=== PATIENT | male | born 1980 | race Hispanic/Latino ===

== ENCOUNTER 2024-03-26 11:30 | Inpatient (IN) | payer SELFPAY ==
[~2024-03-26] VITALS: Ht 160 cm; Wt 99.8 kg
[2024-03-26] MEDS: LACTATED RINGERS 1000ML 1,000 ML IV ONE (11:54)
[2024-03-26 12:05] LABS: BASOPHILS # (AUTO) 0.04 K/uL (0.00-0.20); BASOPHILS % (AUTO) 0.5 % (0.0-5.0); EOSINOPHILS # (AUTO) 0.09 K/uL (0.00-0.70); EOSINOPHILS % (AUTO) 1.2 % (0.0-8.0); IMMATURE GRANULOCYTE ABSOLUTE 0.02 K/uL (0-1); LYMPHOCYTES # (AUTO) 1.6 K/uL (1.0-4.8); LYMPHOCYTES % (AUTO) 20.8 % (21.0-51.0); MEAN CORPUSCULAR HEMOGLOBIN 29.5 pg (27.0-33.0); MEAN CORPUSCULAR HGB CONC 34.5 g/dL (32.0-36.0); MEAN CORPUSCULAR VOLUME 85.6 fL (79-99); MONOCYTES # (AUTO) 0.5 K/uL (0.1-1.0); MONOCYTES % (AUTO) 6.6 % (3.0-13.0); NEUTROPHILS # (AUTO) 5.3 K/uL (1.8-7.7); NEUTROPHILS % (AUTO) 70.6 % (40.0-77.0); PLATELET COUNT (AUTO) 176 K/uL (130-400); RED BLOOD CELL COUNT(AUTO) 5.49 MIL/uL (4.50-6.20); RED CELL DISTRIBUTION WIDTH 12.8 % (11.0-15.5); WHITE BLOOD COUNT (AUTO) 7.4 K/uL (4.8-10.8)
[2024-03-26 12:08] LABS: CREATININE 0.8 mg/dL (0.5-1.3); POTASSIUM 4.2 mmol/L (3.5-5.1)
[2024-03-26 12:11] LABS: INR 1.03 (0.85-1.15); PROTHROMBIN TIME 11.1 SEC (9.6-11.6)
--- NOTE | 2024-03-26 12:39 | EKG ---
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
--- NOTE | 2024-03-26 13:04 | ERN ---
General Chief Complaint: Palpitations Stated Complaint: PALPITATIONS Time Seen by MD: 11:32 Source: patient History of Present Illness Initial Comments Patient is a 43-year-old male coming in to be evaluated for palpitations. Patient states he felt his heart racing earlier this afternoon which began yesterday after he had a discussion with an individual. He states that he felt better but then this morning res surface. He is here for evaluation upon evaluation in triage patient states he feels better his symptoms have improved. Allergies: Coded Allergies: No Known Drug Allergies (Unverified Allergy, Unknown, 03/26/24) Past Medical History Past Medical History: Hypertension Past Surgical History: None ROS Dictation CONSTITUTIONAL: No chills, no fever, no weakness, no diaphoresis, no malaise. HEAD/FACE: No signs of trauma. EENT: No eye pain, no blurred vision, no tearing, no double vision, no ear pain, no ear discharge, no nose pain, no nasal congestion, no throat pain, no throat swelling, no mouth pain. RESPIRATORY: No cough, no orthopnea, no SOB, no stridor, no wheezing. CARDIOVASCULAR: No chest pain, no edema, no palpitations, no syncope. GASTROINTESTINAL/ABDOMINAL: No abdominal pain, no constipation, no diarrhea, no nausea, no vomiting. GENITOURINARY: No abnormal discharge, no dysuria, no frequent urination, no hematuria. No complaints of pain in the genitals. MUSCULOSKELETAL: No back pain, no gout, no joint pain, no joint swelling, no muscle pain, no muscle stiffness, no neck pain. INTEGUMENTARY: No change in color, no change in hair/nails, no dryness, no lesion, no lumps, no rash. NEUROLOGICAL/PSYCH: No anxiety, not depressed, no emotional problem, no headache, no numbness, no pre-existing deficit, no history of seizures, no tremors, no weakness. HEMATOLOGIC/LYMPHATIC: Not anemic, no history of blood clots, no apparent bleeding, no bruising, glands not swollen. All Systems Negative, Except as Noted. Physical Exam Physical Exam Dictation VITAL SIGNS: Reviewed. GENERAL APPEARANCE: Alert, oriented x3, no acute distress, obese. HEAD AND FACE: Non-traumatic. EYES: PERRL, pink conjunctivas, eyelid no trauma, anterior chamber clear. EARS: Pinnas intact and no signs of trauma or erythema. Ear canals clear and no discharge. TMs no erythema. NOSE: No discharge, no bleeding. OROPHARYNX: Mouth normal, teeth no caries, tongue pink. Pharynx clear, no erythema. Tonsils no exudates, no abscesses noted. Mucous membrane moist. NECK: Supple, non-tender, no thyromegaly, no masses, no JVD, no bruits. BREAST: Deferred. CHEST: No tenderness, no crepitus, no paradoxical movement, no retractions. LUNGS: Clear, well-ventilated, symmetric, no rales, no wheezing, no rhonchi, no stridor, good breath sounds bilaterally. HEART: Regular rate, regular rhythm, no murmur, no gallops. VASCULAR: No peripheral edema. ABDOMEN: Soft, positive bowel sounds, nondistended, no guarding, nontender, no rebound, no masses no hepatomegaly, no splenomegaly, no Carr's sign, no hernias. RECTAL: Deferred. GENITAL: Deferred. NEUROLOGICAL: Normal speech, gross motor function intact, gross sensory function intact. MUSCULOSKELETAL: Neck nontender, full range of motion, back nontender, full range of motion. EXTREMITIES: Nontender, full range of motion. SKIN: Color pink, dry, no turgor, no rash, no lacerations, no abrasions, no contusions. LYMPHATICS: Deferred. Results Laboratory and Microbiology Lab and Micro Result Laboratory Tests Test 03/26/24 11:55 03/26/24 14:20 White Blood Count 7.4 K/uL (4.8-10.8) Red Blood Count 5.49 MIL/uL (4.50-6.20) Hemoglobin 16.2 g/dL (14.0-18.0) Hematocrit 47.0 % (42-54) Mean Corpuscular Volume 85.6 fL (79-99) Mean Corpuscular Hemoglobin 29.5 pg (27.0-33.0) Mean Corpuscular Hemoglobin Concent 34.5 g/dL (32.0-36.0) Red Cell Distribution Width 12.8 % (11.0-15.5) Platelet Count 176 K/uL (130-400) Mean Platelet Volume 11.4 fL (7.5-10.5) H Immature Granulocyte % (Auto) 0.3 % (0-1) Neutrophils (%) (Auto) 70.6 % (40.0-77.0) Lymphocytes (%) (Auto) 20.8 % (21.0-51.0) L Monocytes (%) (Auto) 6.6 % (3.0-13.0) Eosinophils (%) (Auto) 1.2 % (0.0-8.0) Basophils (%) (Auto) 0.5 % (0.0-5.0) Neutrophils # (Auto) 5.3 K/uL (1.8-7.7) Lymphocytes # (Auto) 1.6 K/uL (1.0-4.8) Monocytes # (Auto) 0.5 K/uL (0.1-1.0) Eosinophils # (Auto) 0.09 K/uL (0.00-0.70) Basophils # (Auto) 0.04 K/uL (0.00-0.20) Absolute Immature Granulocyte (auto 0.02 K/uL (0-1) Nucleated Red Blood Cells 0.0 % (0.0-0.19) Prothrombin Time 11.1 SEC (9.6-11.6) Prothromb Time International Ratio 1.03 (0.85-1.15) Sodium Level 134 mmol/L (136-145) L Potassium Level 4.2 mmol/L (3.5-5.1) Chloride Level 100 mmol/L (101-111) L Carbon Dioxide Level 24 mmol/L (21-32) Blood Urea Nitrogen 9 mg/dL (7-18) Creatinine 0.8 mg/dL (0.5-1.3) Glomerular Filtration Rate Calc 113 mL/min (>90) Random Glucose 298 mg/dL (70-105) H Total Calcium 9.0 mg/dL (8.5-10.1) Total Creatine Kinase 110 U/L (21-232) Troponin I High Sensitivity < 4 ng/L (4-75) L B-Type Natriuretic Peptide < 5 pg/mL (0-100) Urine Color LIGHT-YELLOW (YELLOW) Urine Appearance CLEAR (CLEAR) Urine pH 5.0 (5.0-8.0) Urine Specific [place] 1.032 (1.001-1.031) Urine Protein NEGATIVE mg/dL (NEGATIVE) Urine Glucose (UA) >=1000 mg/dL (NEGATIVE) H Urine Ketones 10 mg/dL (NEGATIVE) H Urine Occult Blood NEGATIVE (NEGATIVE) Urine Nitrate NEGATIVE (NEGATIVE) Urine Bilirubin NEGATIVE mg/dL (NEGATIVE) Urine Urobilinogen 0.2 mg/dL (0.2-1.0) Urine Leukocyte Esterase NEGATIVE Richard/uL Urine RBC 0-1 /HPF (0-1) Urine WBC 0-1 /HPF (0-1) Urine Bacteria None /HPF (None Seen) Urine Opiates Screen NEGATIVE (NEGATIVE) Urine Barbiturates Screen NEGATIVE (NEGATIVE) Urine Phencyclidine Screen NEGATIVE (NEGATIVE) Urine Amphetamines Screen NEGATIVE (NEGATIVE) Urine Benzodiazepines Screen NEGATIVE (NEGATIVE) Urine Cocaine Screen NEGATIVE (NEGATIVE) Urine Marijuana (THC) Screen NEGATIVE (NEGATIVE) Labs Reviewed?: Yes EKG/XRAY/US/CT/MRI EKG Comment 03/26/2024 time 11:43 a.m. Ventricular rate [address] wave elevation or depression SD 197 MDM MDM: Differential diagnosis: CHEST PAIN, TACHYCARDIA, HISTORY OF DIABETES, HISTORY OF HYPERTENSION, Rationale: Tests considered and ordered secondary to shared decision making include: Previous outside records reviewed: Old ER visits. Risk of complication and/or morbidity or mortality of patient management: None Medications-Per medication reconciliation Need for hospitalization: Patient does not meet criteria for hospitalization. Need for emergency major/minor surgery: No There are no social concerns with this patient. Prescription drug management Prescriptions will include symptomatic care Patient's prior external medical records from other ER visits were reviewed by me as indicated. Prior testing and results from previous visits were reviewed. Prior tests were taken into account with medical decision making and resource utilization, independent historian/historians were used to obtain complete [facility] history. I independently interpreted the test that were performed, results were reviewed by me and considered findings on radiology if ordered. Medical management and examination interpretation discussions were had by me with other qualified healthcare professionals as indicated for the patient's care. PATIENT IS A 43-YEAR-OLD MALE COMING IN TO BE EVALUATED FOR CHEST PRESSU RE. PATIENT STATES THAT THE SYMPTOMS BEGAN EARLIER TODAY. PATIENT DOES HAVE A HISTORY OF HYPERTENSION DIABETES AND CHOLESTEROL. CARDIAC ENZYMES AND EKG WITHIN NORMAL LIMITS. PATIENT WILL BE ADMITTED UNDER THE CARE OF HOSPITALIST GROUP FOR ONGOING EVALUATION AND MANAGEMENT OF CHEST PAIN. ED Course Orders Procedure Category Date Status Time Cbc With Differential LAB 03/26/24 Complete 11:42 Prothrombin Time With LAB 11/20/24 Complete INR 11:42 B-Type Natriuretic LAB 03/26/24 Complete Peptide 11:42 Chest 1vw RAD 03/26/24 Taken 11:42 12 Lead Ekg Tracing- EKG 03/26/24 Complete Technical 11:42 Lactated Ringers PHA 03/26/24 Complete 1000ml (Lactated 12:00 Creatine Kinase, Total LAB 03/26/24 Complete 11:42 Troponin I High LAB 03/26/24 Complete Sensitivity 11:42 Urinalysis Profile LAB 03/26/24 Complete 11:42 Basic Metabolic Panel LAB 03/26/24 Complete 11:42 Drug Screen Urine LAB 03/26/24 Complete 11:43 0.9%Nacl 1000ml (Ns PHA 03/26/24 Complete 1000ml) 15:00 Hydroxyzine 50mg Vial PHA 03/26/24 Complete (Atarax 50mg Inj) 14:50 Troponin I High LAB 03/26/24 Logged Sensitivity 15:08 Current Medications Medications (Trade) Dose Ordered Sig/Willa Route PRN Reason Start Time Stop Time Status Last Admin Dose Admin Hydroxyzine HCl (ATArax 50MG INJ) 25 mg ONCE STAT IM 03/26/24 14:50 03/26/24 14:52 DC 03/26/24 14:53 Lactated Ringer's 1,000 ml @ 0 mls/hr ONCE ONCE IV 03/26/24 12:00 03/26/24 12:01 DC 03/26/24 11:54 Sodium Chloride 1,000 ml @ 0 mls/hr ONCE ONCE IV 03/26/24 15:00 03/26/24 15:01 DC 03/26/24 14:52 Vital Signs Date Time Temp Pulse Resp B/P (MAP) Pulse Ox O2 Delivery O2 Flow Rate FiO2 03/26/24 14:57 96 20 147/96 97 Room Air* 0 03/26/24 13:18 98.4 88 18 146/97 97 Room Air* 0 03/26/24 12:03 99.0 104 20 143/102 98 Room Air* 0 03/26/24 11:33 97.9 111 16 180/110 97 Room Air HEART Score Response (Comments) Value History: High suspicion (+2) 2 EKG: Repolarization changes 1 Age: < 45yrs (0) 0 Risk Factors: 3+ risk factors (+2) 2 Initial Troponin: Normal limit (0) 0 HEART Score Risk: High Risk for MACE (7-10) Total 5 DX & DISP Disposition: Inpatient Departure Impression: Primary Impression: Chest pain Condition: Stable LAKEISHA BARKER MD Mar 26, 2024 13:04
--- NOTE | 2024-03-26 13:19 | NUR ---
PATIENT DOES NOT RECALL MEDICATIONS HE TAKES
[2024-03-26 13:21] LABS: B-TYPE NATRIURETIC PEPTIDE < 5 pg/mL (0-100)
[2024-03-26 14:41] LABS: APPEARANCE,URINE CLEAR (CLEAR); BILIRUBIN,URINE NEGATIVE (NEGATIVE); COLOR,URINE LIGHT-YELLOW (YELLOW); GLUCOSE, URINE (UA) >=1000 mg/dL (NEGATIVE); KETONES,URINE 10 mg/dL (NEGATIVE); LEUKOCYTE ESTERASE ,URINE NEGATIVE Leu/uL (NEGATIVE); NITRATE,URINE NEGATIVE (NEGATIVE); OCCULT BLOOD,URINE NEGATIVE (NEGATIVE); PROTEIN,URINE NEGATIVE (NEGATIVE); UROBILINOGEN,URINE 0.2 mg/dL (0.2-1.0)
[2024-03-26 14:42] LABS: ADD UA MICROSCOPIC YES
[2024-03-26 14:47] LABS: AMPHET/METH SCREEN,URINE NEGATIVE (NEGATIVE); BARBITURATE SCREEN, URINE NEGATIVE (NEGATIVE); BENZODIAZEPINES SCREEN,URINE NEGATIVE (NEGATIVE); CANNABINOID SCREEN,URINE NEGATIVE (NEGATIVE); COCAINE SCREEN,URINE NEGATIVE (NEGATIVE); OPIATE SCREEN,URINE NEGATIVE (NEGATIVE); PHENCYCLIDINE SCREEN,URINE NEGATIVE (NEGATIVE)
[2024-03-26] MEDS: 0.9%NACL 1000ML 1,000 ML IV ONE (14:52)
[2024-03-26] MEDS: hydrOXYzine 50MG VIAL 50 MG/ML VIAL IM STA (14:53)
[2024-03-26 14:55] LABS: MUCUS,URINE RARE LPF (None Seen); RBC,URINE 0-1 /HPF (0-1); WBC,URINE 0-1 /HPF (0-1)
[2024-03-26] MEDS: ASPIRIN 325MG TAB PO ONE (16:01)
--- NOTE | 2024-03-26 16:25 | NUR ---
CONSULT WAS ATTEMPTED AND [facility].
[2024-03-26] MEDS ORDERED: MAGNESIUM 2GM PREMIX 50ML 50 ML IV PRN (16:30)
[2024-03-26] MEDS ORDERED: PoTASSium chl 10% ELIXIR 20MEQ 20 MEQ/15 ML UDCUP PO PRN (16:30)
[2024-03-26] MEDS ORDERED: acetaMINOPHEN 500 MG TABLET PO PRN (16:30)
[2024-03-26] MEDS ORDERED: PoTASSium chloRIDE 20MEQ/100ML 100 ML IV PRN (16:30)
[2024-03-26] MEDS ORDERED: PoTASSium chloRIDE 20MEQ ER 20 MEQ ERTAB PO PRN (16:30)
--- NOTE | 2024-03-26 16:33 | HP ---
[facility] HISTORY AND PHYSICAL Date of Service: Mar 26, 2024 Time of Service: 16:33 HISTORY OF PRESENT ILLNESS: DATE OF SERVICE: 03/27/2024 This is a 43-year-old male with past medical history of hypertension, diabetes mellitus type 2 who presented to the hospital secondary to palpitations. Patient noted that since yesterday she has been having intermittent episodes of palpitations with episodes of anxiety. This also noted pain in chest located in the midsternal area. Denied any paresthesias, diaphoresis cuts or mass nausea, vomiting associated with the pain. Denied any fever, chills, shortness of breath, abdominal pain, falls, syncopal episode. He denied any history of blood clots in the family. He does get episodes of intermittent anxiety at home. Denied any recent travel, sick contacts at home. He does endorse snoring at night and episodes of daytime sleepiness. Labs were notable for white count of 7.2, hemoglobin was 16.2, platelet count was 176k, sodium was 134, potassium was 4.2, creatinine was 0.8 Chest x-ray did not show any acute infiltrates. REVIEW OF SYSTEMS CONSTITUTIONAL: Denies fevers, chills, or night sweats. No unintentional weight loss reported. NEUROLOGICAL: Denies headache, amaurosis fugax, motor weakness, sensory deficit, vertigo/spinning sensation, gait abnormalities, or tremors. ENT: No hearing loss, otalgia, otorrhea, rhinitis, rhinorrhea, hoarseness, or sore throat. CARDIOVASCULAR: Denies any dyspnea on exertion, orthopnea, paroxysmal nocturnal dyspnea. Positive for palpitations, chest pain. PULMONARY: Denies any shortness of breath, cough, phlegm/sputum, hemoptysis, pleuritic chest pain. SLEEP: Positive for episodes of snoring, daytime somnolence GASTROINTESTINAL: Denies any type of dysphagia to either liquids or solids. Denies nausea, vomiting, pyrosis, early satiety, abdominal pain, diarrhea, constipation, or changes in stool consistency or caliber. Denies coffee-ground emesis, hematemesis, hematochezia, or melanotic stools. GENITOURINARY: Denies frequency, urgency, nocturia, hematuria or incontinence (Storage/Irritative symptoms.) Low urinary stream, straining to void, urinary intermittency or hesitancy, splitting of the voiding stream, terminal dribbling. ENDOCRINOLOGIC: Denies polyuria, polydipsia, polyphagia or heat/cold intolerances. HEMATOLOGIC: Denies thrombophilia/previous clots, or coagulopathy/bleeding disorders. ONCOLOGIC: Denies personal history of malignancy. DERMATOLOGIC: Denies rashes or pruritus. PSYCHIATRIC: Denies any suicidal or homicidal ideation. Denies hallucinations. PAST MEDICAL HISTORY: Hypertension, diabetes mellitus type, obesity PAST SURGICAL HISTORY: Denied any previous surgical history PAST SOCIAL HISTORY: Patient smokes half a pack a day for at least 20 years. He also drinks alcohol occasionally. Denied any drug use. FAMILY HISTORY: Denied any pertinent family history Coded Allergies: No Known Drug Allergies (Unverified Allergy, Unknown, 03/26/24) PHYSICAL EXAM GENERAL APPEARANCE: The patient is awake, alert, and oriented, in no acute cardiopulmonary distress. NEUROLOGICAL: Cranial nerves II-XII grossly intact. Motor is 5/5 in bilateral upper and lower extremities proximal to distal. No sensory deficits. HEENT: Face is symmetric. Pupils are equal and reactive. Extraocular movements are intact. NECK: Supple. No JVD. No thyromegaly. No submental, submandibular, pre- /postauricular, occipital or supraclavicular lymphadenopathy. CHEST: Normal chest expansion. No Telemetry. LUNGS: Absence of any rales, rhonchi or any wheezing. CARDIOVASCULAR: Regular. S1 and S2 normal. No appreciable rubs, murmurs or gallops. ABDOMEN: Soft, nontender, and nondistended. There is no rebound, voluntary guarding, or rigidity. : Deferred. No [place]. EXTREMITIES: Non-edematous and not cyanotic. No clubbing. Good capillary refill. SKIN: No skin breakdown. Vital Sign (Last 24 Hours) 03/26/24 03/26/24 13:18 14:57 Temp 98.4 Pulse 96 Resp 20 B/P (MAP) 147/96 Pulse Ox 97 O2 Delivery Room Air* O2 Flow Rate 0 FiO2 21 LABS: Laboratory: Test 03/26/24 15:33 03/26/24 14:20 03/26/24 11:55 Range/Units Troponin I High Sensitivity < 4 L 4-75 ng/L Urine Color LIGHT-YELLOW YELLOW Urine Appearance CLEAR CLEAR Urine pH 5.0 5.0-8.0 Urine Specific [place] 1.032 H 1.001-1.031 Urine Protein NEGATIVE NEGATIVE mg/dL Urine Glucose (UA) >=1000 H NEGATIVE mg/dL Urine Ketones 10 H NEGATIVE mg/dL Urine Occult Blood NEGATIVE NEGATIVE Urine Nitrate NEGATIVE NEGATIVE Urine Bilirubin NEGATIVE NEGATIVE mg/dL Urine Urobilinogen 0.2 0.2-1.0 mg/dL Urine Leukocyte Esterase NEGATIVE NEGATIVE Richard/uL Urine RBC 0-1 0-1 /HPF Urine WBC 0-1 0-1 /HPF Urine Bacteria None None Seen /HPF Urine Opiates Screen NEGATIVE NEGATIVE Urine Barbiturates Screen NEGATIVE NEGATIVE Urine Phencyclidine Screen NEGATIVE NEGATIVE Urine Amphetamines Screen NEGATIVE NEGATIVE Urine Benzodiazepines Screen NEGATIVE NEGATIVE Urine Cocaine Screen NEGATIVE NEGATIVE Urine Marijuana (THC) Screen NEGATIVE NEGATIVE White Blood Count 7.4 4.8-10.8 K/uL Red Blood Count 5.49 4.50-6.20 MIL/uL Hemoglobin 16.2 14.0-18.0 g/dL Hematocrit 47.0 42-54 % Mean Corpuscular Volume 85.6 79-99 fL Mean Corpuscular Hemoglobin 29.5 27.0-33.0 pg Mean Corpuscular Hemoglobin Concent 34.5 32.0-36.0 g/dL Red Cell Distribution Width 12.8 11.0-15.5 % Platelet Count 176 130-400 K/uL Mean Platelet Volume 11.4 H 7.5-10.5 fL Immature Granulocyte % (Auto) 0.3 0-1 % Neutrophils (%) (Auto) 70.6 40.0-77.0 % Lymphocytes (%) (Auto) 20.8 L 21.0-51.0 % Monocytes (%) (Auto) 6.6 3.0-13.0 % Eosinophils (%) (Auto) 1.2 0.0-8.0 % Basophils (%) (Auto) 0.5 0.0-5.0 % Neutrophils # (Auto) 5.3 1.8-7.7 K/uL Lymphocytes # (Auto) 1.6 1.0-4.8 K/uL Monocytes # (Auto) 0.5 0.1-1.0 K/uL Eosinophils # (Auto) 0.09 0.00-0.70 K/uL Basophils # (Auto) 0.04 0.00-0.20 K/uL Absolute Immature Granulocyte (auto 0.02 0-1 K/uL Nucleated Red Blood Cells 0.0 0.0-0.19 % Prothrombin Time 11.1 9.6-11.6 SEC Prothromb Time International Ratio 1.03 0.85-1.15 Sodium Level 134 L 136-145 mmol/L Potassium Level 4.2 3.5-5.1 mmol/L Chloride Level 100 L 101-111 mmol/L Carbon Dioxide Level 24 21-32 mmol/L Blood Urea Nitrogen 9 7-18 mg/dL Creatinine 0.8 0.5-1.3 mg/dL Glomerular Filtration Rate Calc 113 >90 mL/min Random Glucose 298 H 70-105 mg/dL Total Calcium 9.0 8.5-10.1 mg/dL Total Creatine Kinase 110 21-232 U/L B-Type Natriuretic Peptide < 5 0-100 pg/mL Current Medications Medications (Trade) Dose Ordered Sig/Willa Route PRN Reason Start Time Stop Time Status Last Admin Dose Admin Acetaminophen (TYLenol 500MG TAB) 500 mg Q6H PRN PO MILD PAIN (1-3) 03/26/24 16:30 04/25/24 16:29 Famotidine (Pepcid 20mg Vial) 20 mg BID IV 03/26/24 21:00 04/25/24 20:59 Hydroxyzine HCl (ATArax 50MG INJ) 25 mg ONCE STAT IM 03/26/24 14:50 03/26/24 14:52 DC 03/26/24 14:53 25 MG Magnesium Sulfate 50 ml @ 0 mls/hr PROTOCOL PRN IV hypomagnesemia 03/26/24 16:30 04/25/24 16:29 Potassium Chloride 100 ml @ 100 mls/hr AD PRN IV POTASSIUM PROTOCOL 03/26/24 16:30 04/25/24 16:29 Potassium Chloride (K-Dur/Klor-Con 20meq) 20 meq AD PRN PO POTASSIUM PROTOCOL 03/26/24 16:30 04/25/24 16:29 Potassium Chloride (KCl 10% Elixir 20meq/15ml) 20 meq AD PRN PO POTASSIUM PROTOCOL 03/26/24 16:30 04/25/24 16:29 DIAGNOSTICS / RADIOLOGY: [ ] ASSESSMENT: Chest pain ACS rule out POA differential cardiac versus anxiety Palpitations with EKG showing sinus tachycardia Obesity BMI of 39.0 History of hypertension History of diabetes mellitus type Possible sleep apnea History of smoking PLAN: - patient to be admitted to medical-surgical unit with telemetry -in reference to chest pain. We will trend troponins q.6 hours. Also obtain an echocardiogram. Patient does have risk factors for CAD. His EKG showed sinus tachycardia. We will check a D-dimer. D-dimer is elevated we will consider a CT angiogram to rule out PE. Secondary to his cardiac risk factors we will also request consultation with Cardiology -check TSH, procalcitonin, CRP, A1c -obtain home medications which will be reconciled once available -patient was counseled regarding smoking cessation - Pt will benefit from sleep study as outpt to rule out sleep apnea -further orders per hospitalization course. Advanced Care Planning Which of the following were discussed: Hospice care: Yes __ No _x_ Therapeutic options: Yes __ No __ Advance directives: Yes __ No __ Other discussions: Pt is full code Discussed with who?: patient (Patient, family or surrogates) Voluntary nature of this service was explained to the patient? Yes _x_ No __ Amount of time spent: 25 minutes FREDA Haddad MD, MD Mar 26, 2024 16:33
--- NOTE | 2024-03-26 16:41 | NUR ---
CONSULTED COMPLETED AT THIS TIME.
--- NOTE | 2024-03-26 17:13 | NUR ---
ENDORSED CARE TO THO RN AT THIS TIME.
[2024-03-26 17:29] LABS: THYROID STIMULATING HORMONE 0.56 uIU/mL (0.36-3.74)
[2024-03-26] MEDS ORDERED: DEXTROSE 50%-WATER 50 ML DISP.SYRIN IV PRN (20:30)
[2024-03-26] MEDS ORDERED: GLUCAGON 1MG KIT 1 MG ML IM PRN (20:30)
[2024-03-26] MEDS: FAMOTIDINE 20MG VIAL IV SCH (21:03)
[2024-03-26] MEDS: INSULIN humuLIN R 100 UNIT/ML 3ML SQ SCH (21:05)
--- NOTE | 2024-03-27 04:33 | NUR ---
PATIENT DID NOT BRING HOME MEDICATIONS AND DOES NOT RECALL DOSAGE OF MEDICATIONS
[2024-03-27 05:56] LABS: BASOPHILS # (AUTO) 0.04 K/uL (0.00-0.20); BASOPHILS % (AUTO) 0.7 % (0.0-5.0); EOSINOPHILS # (AUTO) 0.16 K/uL (0.00-0.70); EOSINOPHILS % (AUTO) 2.7 % (0.0-8.0); HEMATOCRIT 43.4 % (42-54); IMMATURE GRANULOCYTE ABSOLUTE 0.02 K/uL (0-1); LYMPHOCYTES # (AUTO) 1.9 K/uL (1.0-4.8); LYMPHOCYTES % (AUTO) 30.9 % (21.0-51.0); MEAN CORPUSCULAR HGB CONC 34.6 g/dL (32.0-36.0); MEAN CORPUSCULAR VOLUME 86.8 fL (79-99); MONOCYTES # (AUTO) 0.5 K/uL (0.1-1.0); MONOCYTES % (AUTO) 8.8 % (3.0-13.0); NEUTROPHILS # (AUTO) 3.4 K/uL (1.8-7.7); NEUTROPHILS % (AUTO) 56.6 % (40.0-77.0); PLATELET COUNT (AUTO) 157 K/uL (130-400); RED CELL DISTRIBUTION WIDTH 12.8 % (11.0-15.5)
[2024-03-27 06:15] LABS: CREATININE 0.7 mg/dL (0.5-1.3); MAGNESIUM 1.9 mg/dL (1.80-2.40); POTASSIUM 3.8 mmol/L (3.5-5.1)
--- NOTE | 2024-03-27 07:00 | NUR ---
REPORT RECEIVED FROM DEONDRE ALEXIS
--- NOTE | 2024-03-27 07:11 | CONS ---
CONSULT NOTE: CARDIOLOGY Reason for consult: Chest pain, palpitations HPI/story at presentation: This is a pleasant 43-year-old male with past medical history as below presented with complaints of atypical chest discomfort, sometimes radiation to left arm present in the lower chest. It was a pressure ache sensation, not associated with exertion. Was having issues with palpitations yesterday and this morning. Had about 6 packs of beer yesterday and had issues with palpitation this m orning. Here for further evaluation and management Subjective: 03/26/2024 no complaints Past medical history: See below Allergies, Meds See chart Review of systems Review of Systems Constitutional: Negative for chills and fever. HENT: Negative for ear discharge and ear pain. Eyes: Negative for photophobia and discharge. Respiratory: Negative for cough, sputum production and stridor. Cardiovascular: Negative for chest pain and palpitations. Gastrointestinal: Negative for diarrhea and vomiting. Genitourinary: Negative for frequency. Musculoskeletal: Negative for myalgias. Skin: Negative for rash. Neurological: Negative for focal weakness and seizures. Endo/Heme/Allergies: Negative for polydipsia. Psychiatric/Behavioral: Negative for hallucinations. Vitals see chart PHYSICAL EXAMINATION GENERAL: The patient is alert and oriented*3 HEENT: Nonicteric sclerae, non traumatic HEART: Regular rate and rhythm with no murmurs LUNGS: Clear to auscultation bilaterally ABDOMEN: No acute issues, non tender GENITAL, RECTAL: deferred SKIN: No rash NEUROLOGIC: NFND EXTREMITIES: No edema ASSESSMENT CHEST PAIN, SHORTNESS OF BREATH, PALPITATIONS atypical at presentation Stress test echocardiogram inpatient, outpatient monitor ordered Negative D-dimer, 03/26/2024 DIABETES, OBESITY, HYPERTENSION DYSLIPIDEMIA SLEEP APNEA CORE MEASURES Pending OTHER MEDICAL PROBLEMS Reviewed PLAN 03/26/2024 given discomfort, nasal presentation, negative D-dimer, EKG changes, will proceed with stress test, echocardiogram tomorrow to further evaluate symptoms. Outpatient monitoring is like indicated for arrhythmias as well. This is a delayed note. Patient was seen in exam 03/26/2024 around 1800. ATTESTATION I was involved substantially in the care of this patient Number and complexity of problems addressed: 1 acute illness with systemic features Amount and or complexity of data Review of prior external note(s) from each unique source: 2+ Ordering of each unique test : 0 Review of the result(s) of each unique test: 2+ Assessment requiring an independent historian(s): No Independent interpretation of test performed by another MD/QHCP/appropriate sour ce (not separately reported) : No Discussion of management or test interpretation with external MD/QHCP/appropriate source (not separately reported) : No Risk status (cardiac, billing related): Moderate DOUG HALLMAN MD Mar 27, 2024 07:11
--- NOTE | 2024-03-27 07:25 | NUR ---
ASSESSMENT: PT FOUND IN THE LEFT SIDE LYING POSITION. HE AWOKE EASILY. CARDIO/PULMONARY: PT CURRENTLY DENIES ANY CP. S1S2 AUSCULTATED. 2+PULSES TO RADIA/DORSALIS PEDAL SITES BILATERALLY. SL TO LAC 20G AND PATENT. NO CYANOSIS NOTED TO NAIL BEDS. CAP REFILL LESS THAN 3 SECONDS. ON ROOM AIR OXYGEN. LSCTA TO ALL ALVAREZ . DENIES ANY SOB NEURO: PT NEUROLOGICALLY INTACT. A/X 3. HE FOLLOWS ALL COMMANDS. GCS OF 15 GI/: PT DENIES ANY ABD PAIN OR PROBLEMS DEFECATING OR URINATING. MUSCULOSKELETAL/INTEGUMENTARY: PT HAS FULL ROM TO ALL EXTREMITIES. HE IS ABLE TO AMBULATE TO BR W/NO DIFFICULTIES. HE HAS A STEADY AND EVEN GAIT.
--- NOTE | 2024-03-27 08:15 | NUR ---
PT TAKEN TO RADIOLOGY/CARDIOLOGY FOR GOLDY SCAN
--- NOTE | 2024-03-27 08:45 | NUR ---
PT RETURNED FROM RADIOLOGY
[2024-03-27] MEDS: REGADENOSON 0.4 MG/5 ML PF SYG IVP ONE (08:50)
--- NOTE | 2024-03-27 09:39 | NUR ---
PT JUST TAKEN AGAIN TO RADIOLOGY DEPT
--- NOTE | 2024-03-27 09:59 | NUR ---
PT JUST RETURNED FROM RADIOLOGY
--- NOTE | 2024-03-27 10:00 | NUR ---
PT PROVIDED AM TRAY
--- NOTE | 2024-03-27 10:00 | NUR ---
MEDICATION RECONCILIATION: PT DOES NOT HAVE HIS MEDS.
--- NOTE | 2024-03-27 10:13 | NUR ---
HOSPITALIST RESIDENT IN TO SEE/INTERVIEW THE PT.
--- NOTE | 2024-03-27 12:38 | HMCSR ---
APPROVED REPORT Height: 5 ft 3in Weight: 220 lbs TEST INDICATIONS Chest Pain The imaging protocol used to acquire images was Rest Tc-99m/stress Tc-99m 1 day Consent: The procedure was explained and understood by the patient. Informerd consent was witnessed Meek Grey RN First, low dose rest was performed then high dose stress. RESTING DATA: The resting ekg shows: NSR Rest SPECT myocardial perfusion imaging was performed in supine position minutes following the intra venous injection of 12.5 mCi of Tc-99 Sestamibi. Time of rest injection: 06:40: Date: 03/27/2024 PHARMACOLOGIC STRESS: Pharmacologic stress test was performed by injecting regadenoson 0.4 mg IV push followed by the intra venous injection of 30 mCi of Tc-99 Sestamibi. Time of stress injection: 08:50: Date: 03/27/2024 Heart Rate at time of stress injection: 75 bpm. The images were gated to evaluate regional wall motion and calculate left ventricular ejection fracti on. STRESS DETAILS Reason for Termination: Infusion complete Stress Symptoms: Dyspnea Max HR Achieved: 112 bpm % of APMHR Achieved: 74 Max Blood Pressure: 156/79 mmHg Stress ECG: NSR LV PERFUSION Reverse redistribution artifact involving the anterior wall. No clear-cut evidence of ischemia prese nt. EF of 56%. Low risk stress test as above.
--- NOTE | 2024-03-27 12:49 | NUR ---
DR JARRELL CALLED AND STATED GOLDY SCAN CAME OUT OK AND WOULD CALL DR MUÑIZ. PENDING 2 D ECHO ONLY.
--- NOTE | 2024-03-27 16:45 | NUR ---
STILL PENDING 2 D ECHO TO BE READ SO PT MIGHT POSSIBLY BE DISPOSITIONED TO HOME
--- NOTE | 2024-03-27 17:03 | NUR ---
PER SHOE [employer]ING [employer] DR JARRELL, HE IS GOING TO CLOSE OUT CHART. DR WITT HOSPITALIST RESIDENT MADE AWARE AND WILL WORK ON D/C ORDERS. NO NEW MEDS AND F/U W/CARDIO IN 1-2 WEEKS.
--- NOTE | 2024-03-27 17:11 | HMCSR ---
APPROVED REPORT EXAM: Two-dimensional and M-mode echocardiogram with Doppler and color Doppler. INDICATION ICD: Chest Pain 2D Dimensions RVDd4.0 cmLVEF(%)38.0 (>50%)LVED Vol(simp.)103.0 mL IVSd1.2 (0.7-1.1cm)FS(%)18 %LVES Vol(simp.)43.0 mL LVDd4.4 (3.8-5.6cm)LA (2D)3.9 (1.6-4.0cm)LVEF(%, simp.)58 % PWd1.4 (0.7-1.1cm)Ao Root(2D)2.7 (2.0-3.7cm)LA ESV INDEX (4CH)13.00 mL/m2 IVSs1.6 cmLVOT diam2.2 (1.8-2.4cm)LA ESV INDEX (2CH)13.50 mL/m2 LVDs3.6 (2.5-4.0cm)LA ESV INDEX (BP)13.70 mL/m2 PWs1.5 cm M-Mode Dimensions EPSS0.8 cm LA (MM)3.5 (1.6-4.0cm) Ao Root(MM)3.3 (2.0-3.7cm) Aortic Valve AoV VTI0.2 mAo Mean GR3.0 mmHgLVOT VTI0.17 m CONRAD (VMAX)3.4 cm2AVA (VTI) 3.4 cm2 Mitral Valve MV E Vmax73.5 cm/sDECEL Qboz328 ms MV A Vmax47.9 cm/sP 1/2 T66 ms E/A ratio1.5MVA (PHT)3.3 cm2 TDI E/E' Uvnkih25.9E/E' Pgwphpx12.0 Medial E' Peak V5.70 cm/sLateral E' Peak V6.10 cm/s Left Ventricle The left ventricle is normal size. There is normal LV segmental wall motion. There is normal left kings tricular wall thickness. LVEF is 55-60%. The left ventricular diastolic function is normal. Right Ventricle The right ventricle is normal size. The right ventricular systolic function is normal. Atria The left atrium size is normal. The right atrium size is normal. Aortic Valve The aortic valve is normal in structure. No aortic regurgitation is present. There is no aortic valvu lar stenosis. Mitral Valve The mitral valve is normal in structure. There is no mitral valve regurgitation noted. There is no mi tral valve stenosis. Tricuspid Valve The tricuspid valve is normal in structure. There is no tricuspid valve regurgitation noted. Pulmonic Valve The pulmonary valve is normal in structure. There is no pulmonic valvular regurgitation. Great Vessels The aortic root is normal in size. IVC is not well visualized. Pericardium There is no pericardial effusion. Conclusion LVEF is 55-60%. The left ventricular diastolic function is normal. There is normal left ventricular wall thickness. The left ventricle is normal size. There is normal LV segmental wall motion. No effusion Normal pulmonary pressures Study quality was adequate
[2024-03-27 17:44] VITALS: TEMP 97.6
--- NOTE | 2024-03-27 18:37 | DS ---
Discharge Summary Hospital Course Summary: This is a 43 year-old male with past medical history of hypertension, diabetes mellitus type 2 who presented to the ED with a complains of chest pain and palpitations.Patient noted that since 03/25 he has been experiencing intermittent episodes of palpitations associated with anxiety and pressure-like, midsternal chest pain. He recalls having several similar episodes in the past 1 year. He denied any paresthesias, diaphoresis nausea, vomiting associated with the pain. Denied any fever, chills, shortness of breath, abdominal pain, falls, syncopal episode. Denied any recent travel, sick contacts at home. He also noted about snoring at night and episodes of daytime sleepiness. Initial Vitals temperature 97.9, pulse rate 111, respiratory rate 16, blood pressure 180/110, SpO2 97% on room air. EKG resulted in Sinus tachycardia, Ventricular premature complex, borderline prolonged GA interval inferior st and t wave changes that could represent ischemia. Troponin , BNP, D- dimer levels are normal. Chest x-ray did not show any acute infiltrates. Urine drug screen results came back negative. Patient is admitted for further workup and observation.Cardiology is consulted. Over the course of the stay his blood pressure has gradually improved. He is started on insulin sliding scale, Pepcid 20 mg for GI prophylaxis and magnesium and potassium protocols. Troponin trends Q6h are normal. Labs CBC, CMP are unremarkable. PT INR levels are normal. Urinalysis is positive for glucose and ketones. Total creatinine kinase, procalcitonin, TSH levels are normal. Today the patient is seen at the bedside. He is awake alert and oriented. His chest pain, palpitations have subsided. He states that he feels better and has no other complaints. He is hemodynamically stable. Lexiscan stress test resulted in no clear-cut evidence of ischemia present with EF of 56%. 2D echo showed LVEF of 55-60%. Patient is cleared from Cardiology standpoint for discharge. He is able to tolerate oral feeds comfortably and is able to ambulate without any assistance. Patient is being discharged today. The patient noted taking blood pressure and diabetes medication at home but is unable to recall their names. No home medication list was available in his chart. Given the risk of duplication and his current stability, no new BP, DM medications are prescribed. The patient is advised to resume his usual home medications as previously prescribed and to contact his pharmacy or primary care physician to verify his medication list promptly. The patient is to follow up with his PCP within [address] Garber, cardiology consult outpatient for further workup and outpatient sleep study in view of obstructive sleep apnea. Patient has been educated to monitor for recurrent symptoms like chest pain, palpitations or new symptoms like shortness of breath, dizziness, weakness... And to seek immediate medical attention in such a scenario. Patient agrees with the discharge plan. [employer]ation(s): Cardiology consult: Procedure(s): PROCEDURE: CARD GOLDY - NM LEXISCAN CARDIOLITE APPROVED REPORT Height: 5 ft 3in Weight: 220 lbs TEST INDICATIONS Chest Pain The imaging protocol used to acquire images was Rest Tc-99m/stress Tc-99m 1 day Consent: The procedure was explained and understood by the patient. Informerd consent was witnessed by Osmany Grey RN First, low dose rest was performed then high dose stress. RESTING DATA: The resting ekg shows: NSR Rest SPECT myocardial perfusion imaging was performed in supine position minutes following the intravenous injection of 12.5 mCi of Tc-99 Sestamibi. Time of rest injection: 06:40: Date: 03/27/2024 PHARMACOLOGIC STRESS: Pharmacologic stress test was performed by injecting regadenoson 0.4 mg IV push followed by the intravenous injection of 30 mCi of Tc-99 Sestamibi. Time of stress injection: 08:50: Date: 03/27/2024 Heart Rate at time of stress injection: 75 bpm. The images were gated to evaluate regional wall motion and calculate left ventricular ejection fraction. STRESS DETAILS Reason for Termination: Infusion complete Stress Symptoms: Dyspnea Max HR Achieved: 112 bpm % of APMHR Achieved: 74 Max Blood Pressure: 156/79 mmHg Stress ECG: NSR LV PERFUSION Reverse redistribution artifact involving the anterior wall. No clear-cut evidence of ischemia present. EF of 56%. Low risk stress test as above. PROCEDURE: ECHO CMP - ECHO 2-D COMPLETE APPROVED REPORT EXAM: Two-dimensional and M-mode echocardiogram with Doppler and color Doppler. INDICATION ICD: Chest Pain 2D Dimensions RVDd 4.0 cm LVEF(%) 38.0 (>50%) LVED Vol(simp.) 103.0 mL IVSd 1.2 (0.7-1.1cm) FS(%) 18 % LVES Vol(simp.) 43.0 mL LVDd 4.4 (3.8-5.6cm) LA (2D) 3.9 (1.6-4.0cm) LVEF(%, simp.) 58 % PWd 1.4 (0.7-1.1cm) Ao Root(2D) 2.7 (2.0-3.7cm) LA ESV INDEX (4CH) 13.00 mL/m2 IVSs 1.6 cm LVOT diam 2.2 (1.8-2.4cm) LA ESV INDEX (2CH) 13.50 mL/m2 LVDs 3.6 (2.5-4.0cm) LA ESV INDEX (BP) 13.70 mL/m2 PWs 1.5 cm M-Mode Dimensions EPSS 0.8 cm LA (MM) 3.5 (1.6-4.0cm) Ao Root(MM) 3.3 (2.0-3.7cm) Aortic Valve AoV VTI 0.2 m Ao Mean GR 3.0 mmHg LVOT VTI 0.17 m CONRAD (VMAX) 3.4 cm2 CONRAD (VTI) 3.4 cm2 Mitral Valve MV E Vmax 73.5 cm/s DECEL Time 176 ms MV A Vmax 47.9 cm/s P 1/2 T 66 ms E/A ratio 1.5 MVA (PHT) 3.3 cm2 TDI E/E' Medial 12.9 E/E' Lateral 12.0 Medial E' Peak V 5.70 cm/s Lateral E' Peak V 6.10 cm/s Left Ventricle The left ventricle is normal size. There is normal LV segmental wall motion. There is normal left ventricular wall thickness. LVEF is 55-60%. The left ventricular diastolic function is normal. Right Ventricle The right ventricle is normal size. The right ventricular systolic function is normal. Atria The left atrium size is normal. The right atrium size is normal. Aortic Valve The aortic valve is normal in structure. No aortic regurgitation is present. There is no aortic valvular stenosis. Mitral Valve The mitral valve is normal in structure. There is no mitral valve regurgitation noted. There is no mitral valve stenosis. Tricuspid Valve The tricuspid valve is normal in structure. There is no tricuspid valve re gurgitation noted. Pulmonic Valve The pulmonary valve is normal in structure. There is no pulmonic valvular regurgitation. Great Vessels The aortic root is normal in size. IVC is not well visualized. Pericardium There is no pericardial effusion. Conclusion LVEF is 55-60%. The left ventricular diastolic function is normal. There is normal left ventricular wall thickness. The left ventricle is normal size. There is normal LV segmental wall motion. No effusion Normal pulmonary pressures Study quality was adequate Assessment/Plan: ASSESSMENT: Chest pain, with negative cardiac workup Palpitations with EKG showing sinus tachycardia, subsided Obesity BMI of 39.0 History of hypertension History of diabetes mellitus type 2 Suspected obstructive sleep apnea History of smoking PLAN: ADMISSION DATE : 03/26/2024 DISCHARGE DATE : 03/27/2024 DISPOSITION : Home CONDITION : Stable [employer]ation[employer]s) : Cardiology consult FOLLOW UP APPOINTMENTS : Follow up with PCP within 2-3 days, follow up with cardiology consult outpatient within 1-2 weeks PROCEDURES : None IMAGING (s) : Lexiscan stress test, 2D echo, chest x-ray MICROBIOLOGY : ACTIVITY : ab roland HOME MEDICATIONS : Continue home medications NEW MEDICATIONS : None TEACHING : The patient was instructed to present to the nearest Emergency Department or call 911 should their symptoms return or worsen. Time spent arranging discharge: 1-30 minutes ATTESTATION BY PHYSICIAN I have seen and examined the patient. I reviewed the documentation, medical decision making, and treatment plan as noted by the resident above. I agree with the findings and plan of care. Luis Miguel Mark MD, PRIYANKA MD Mar 27, 2024 18:37
[2024-03-27 18:47] VITALS: BP 157/103; PULSE 88; RESP 17; O2SAT 98
--- NOTE | 2024-03-27 19:38 | PN ---
CARDIOLOGY Reason for consult: Chest pain, palpitations HPI/story at presentation: This is a pleasant 43-year-old male with past medical history as below presented with complaints of atypical chest discomfort, sometimes radiation to left arm present in the lower chest. It was a pressure ache sensation, not associated with exertion. Was having issues with palpitations yesterday and this morning. Had about 6 packs of beer yesterday and had issues with palpitation this morning. Here for further evaluation and management Subjective: 03/26/2024 no complaints 03/27/2024 no complaints Past medical history: See below Allergies, Meds See chart Review of systems Review of Systems Constitutional: Negative for chills and fever. HENT: Negative for ear discharge and ear pain. Eyes: Negative for photophobia and discharge. Respiratory: Negative for cough, sputum production and stridor. Cardiovascular: Negative for chest pain and palpitations. Gastrointestinal: Negative for diarrhea and vomiting. Genitourinary: Negative for frequency. Musculoskeletal: Negative for myalgias. Skin: Negative for rash. Neurological: Negative for focal weakness and seizures. Endo/Heme/Allergies: Negative for polydipsia. Psychiatric/Behavioral: Negative for hallucinations. Vitals see chart PHYSICAL EXAMINATION GENERAL: The patient is alert and oriented*3 HEENT: Nonicteric sclerae, non traumatic HEART: Regular rate and rhythm with no murmurs LUNGS: Clear to auscultation bilaterally ABDOMEN: No acute issues, non tender GENITAL, RECTAL: deferred SKIN: No rash NEUROLOGIC: NFND EXTREMITIES: No edema ASSESSMENT CHEST PAIN, SHORTNESS OF BREATH, PALPITATIONS atypical at presentation negative stress, echo 03/2024 Stress test echocardiogram inpatient, outpatient monitor ordered Negative D-dimer, 03/26/2024 DIABETES, OBESITY, HYPERTENSION DYSLIPIDEMIA SLEEP APNEA CORE MEASURES Pending OTHER MEDICAL PROBLEMS Reviewed PLAN 03/26/2024 given discomfort, nasal presentation, negative D-dimer, EKG changes, will proceed with stress test, echocardiogram tomorrow to further evaluate symptoms. Outpatient monitoring is like indicated for arrhythmias as well. This is a delayed note. Patient was seen in exam 03/26/2024 around 1800. 03/27/2024 Testing was negative, likely can be discharged home from a cardiac standpoint. Will follow-up in the office to set up a monitor to further evaluate palpitations at presentation. D-dimer was previously negative as well. ATTESTATION I was involved substantially in the care of this patient Number and complexity of problems addressed: 1 acute illness with systemic features Amount and or complexity of data Review of prior external note(s) from each unique source: 2+ Ordering of each unique test : 0 Review of the result(s) of each unique test: 2+ Assessment requiring an independent historian(s): No Independent interpretation of test performed by another MD/QHCP/appropriate source (not separately reported) : No Discussion of management or test interpretation with external MD/QHCP/appropriate source (not separately reported) : No Risk status (cardiac, billing related): Moderate Vitals/Labs Vital Signs Date Time Temp Pulse Resp B/P (MAP) Pulse Ox O2 Delivery O2 Flow Rate FiO2 03/27/24 18:47 88 17 157/103 98 Room Air* 0 21 03/27/24 17:44 97.5 Laboratory Tests 03/27/24 05:45 Medications Current Medications Lactated Ringer's 1,000 ml @ 0 mls/hr ONCE ONCE IV Last administered on 03/26/24at 11:54; Start 03/26/24 at 12:00; Stop 03/26/24 at 12:01; Status DC Sodium Chloride 1,000 ml @ 0 mls/hr ONCE ONCE IV Last administered on 03/26/24at 14:52; Start 03/26/24 at 15:00; Stop 03/26/24 at 15:01; Status DC Hydroxyzine HCl 25 mg ONCE STAT IM Last administered on 03/26/24at 14:53; Start 03/26/24 at 14:50; Stop 03/26/24 at 14:52; Status DC Aspirin 325 mg ONCE ONCE PO Last administered on 03/26/24at 16:01; Start 03/26/24 at 16:00; Stop 03/26/24 at 16:01; Status DC Famotidine 20 mg BID IV Last administered on 03/27/24at 10:34; Start 03/26/24 at 21:00; Stop 04/25/24 at 20:59 Acetaminophen 500 mg Q6H PRN PO; Start 03/26/24 at 16:30; Stop 04/25/24 at 16:29 Potassium Chloride 100 ml @ 100 mls/hr AD PRN IV; Start 03/26/24 at 16:30; Stop 04/25/24 at 16:29 Potassium Chloride 20 meq AD PRN PO; Start 03/26/24 at 16:30; Stop 04/25/24 at 16:29 Potassium Chloride 20 meq AD PRN PO; Start 03/26/24 at 16:30; Stop 04/25/24 at 16:29 Magnesium Sulfate 50 ml @ 0 mls/hr PROTOCOL PRN IV; Start 03/26/24 at 16:30; Stop 04/25/24 at 16:29 Insulin Human Regular INSULIN SLIDING SCAL... ACHS SQ Last administered on 03/26/24at 21:05; Start 03/26/24 at 21:00; Stop 04/25/24 at 20:59 Dextrose 50 ml AD PRN IV; Start 03/26/24 at 20:30; Stop 04/25/24 at 20:29 Glucagon 1 mg AD PRN IM; Start 03/26/24 at 20:30; Stop 04/25/24 at 20:29 Regadenoson 0.4 mg ONCE ONCE IVP Last administered on 03/27/24at 08:50; Start 03/27/24 at 07:00; Stop 03/27/24 at 07:01; Status DC DOUG HALLMAN MD Mar 27, 2024 19:38
== END 2024-03-27 18:52 | disposition home or self-care (01) | DRG 313 ==
LOC: EDH 11:30 → EDHIP 11:31 → 3DH 03-27 16:33 → EDHIP 03-27 17:10
PROVIDERS: ADMIT Internal Medicine; ATTEND Internal Medicine
PROC: 4A12XM4 Monitoring of Cardiac Stress, External Approach (ICD-10-PCS; principal; 2024-03-27)
PROC: 3E073KZ Introduction of Other Diagnostic Substance into Coronary Artery, Percutaneous Approach (ICD-10-PCS; 2024-03-27)
DX: R07.89 Other chest pain (principal); E11.9 Type 2 diabetes mellitus without complications; E66.9 Obesity, unspecified; E78.5 Hyperlipidemia, unspecified; F17.210 Nicotine dependence, cigarettes, uncomplicated; F41.9 Anxiety disorder, unspecified; G47.33 Obstructive sleep apnea (adult) (pediatric); I10 Essential (primary) hypertension; I44.0 Atrioventricular block, first degree; Z68.39 Body mass index [BMI] 39.0-39.9, adult
CPT/HCPCS: 36415; 71045; 78452; 80048; 80305; 81001; 82550; 82948; 83036; 83735; 83880; 84145; 84443; 84484; 85025; 85378; 85610; 86140; 87040; 93005; 93017; 93306; 96360; 96361; 96372; 99285; A9500; G0378; J1815; J2785; J3410; J3490